=== PATIENT | male | born 1990 | race Caucasian/White ===

== ENCOUNTER 2023-01-06 12:40 | Inpatient (IN) | payer OTHER ==
[2023-01-06 14:58] VITALS: BMI 29.1
[2023-01-06] MEDS ORDERED: COLLOIDAL OATMEAL 1 BAR EACH TP PRN (17:30)
[2023-01-06] MEDS ORDERED: BENZOCAINE/MENTHOL (CHLORASEPTIC ) LOZENGE MM PRN (17:30)
[2023-01-06] MEDS ORDERED: BENZONATATE 200 MG CAPSULE PO PRN (17:30)
[2023-01-06] MEDS ORDERED: NALOXONE HCL 0.4 MG/ML VIAL IM PRN (17:30)
[2023-01-06] MEDS ORDERED: LOPERAMIDE HCL 2 MG CAPSULE PO PRN (17:30)
[2023-01-06] MEDS ORDERED: guaiFENesin 600 MG TABLET.ER (FP) PO PRN (17:30)
[2023-01-06] MEDS ORDERED: POLYETHYLENE GLYCOL (HEALTHYLAX) 3350 17 GM PACKET PO PRN (17:30)
[2023-01-06] MEDS ORDERED: MAGNESIUM HYDROX 2400MG/30ML ORAL SUSPENSION 30 ML CUP PO PRN (17:30)
[2023-01-06] MEDS ORDERED: NALOXONE HCL (KLOXXADO) 8 MG SPRAY NS PRN (17:30)
[2023-01-06] MEDS ORDERED: IBUPROFEN 400 MG TABLET (FP) PO PRN (17:30)
[2023-01-06] MEDS ORDERED: P-EPHED 60MG/TRIPROLIDI 2.5MG TABLET PO PRN (17:30)
[2023-01-06] MEDS ORDERED: MAG HYDROX/AL HYDROX/SIMETH 30 ML UNIT-DOSE CUP PO PRN (17:30)
[2023-01-06] MEDS ORDERED: AMMONIUM LACTATE 12% LOTION 225 GM BOTTLE TP PRN (17:30)
[2023-01-06] MEDS ORDERED: ACETAMINOPHEN 325 MG TABLET (FP) PO PRN (17:30)
[2023-01-06] MEDS ORDERED: IBUPROFEN 600 MG TABLET (FP) PO PRN (17:30)
[2023-01-06] MEDS ORDERED: TUBERCULIN PPD 5 TU/0.1ML SYRINGE (IN PATIENT USE ONLY) ID ONE (18:45)
[2023-01-06] MEDS: MELATONIN 5 MG TABLETS PO SCH (21:40)
[2023-01-06] MEDS: THIAMINE HCL 100 MG TABLET (FP) PO SCH (21:40)
[2023-01-07] MEDS: PRENATAL VITAMINS W/ FOLIC ACID TABLET (FP) PO SCH (10:33)
[2023-01-07 14:25] LABS: POTASSIUM 4.2 mmol/L (3.5-5.1)
[2023-01-07 14:26] LABS: HEMATOCRIT 29.6 % (35.4-49); HEMOGLOBIN 9.3 GM/dL (11.7-16.9); MCH 21.5 pg (25.7-33.7); MCHC 31.4 g/dl (32.0-35.9); MEAN CELL VOLUME 68.4 fl (80-96); MEAN PLT VOLUME 7.7 fl (7.5-11.1); PLATELET COUNT 371 10^3/uL (134-434); RBC 4.33 M/mm3 (4.00-5.60); RDW 17.7 % (11.9-15.9); WHITE BLOOD COUNT 3.2 K/mm3 (4.0-10.0)
[2023-01-07 14:31] LABS: CALCIUM 8.9 mg/dL (8.5-10.1)
[2023-01-07 14:32] LABS: BLOOD UREA NITROGEN 17.8 mg/dL (7-18)
[2023-01-07 14:49] LABS: ALBUMIN 2.9 g/dl (3.4-5.0)
[2023-01-07 14:51] LABS: SYPHILIS W/ RPR CONF NON-REACTIVE (NONREACTIVE)
[2023-01-07 14:52] LABS: CREATININE 0.9 mg/dL (0.55-1.3)
[2023-01-07 14:53] LABS: BILIRUBIN,TOTAL 0.4 mg/dL (0.2-1)
[2023-01-07] MEDS: MELATONIN 5 MG TABLETS PO SCH ×2 (21:51→22:15)
[2023-01-07] MEDS: THIAMINE HCL 100 MG TABLET (FP) PO SCH (21:51)
[2023-01-07] MEDS: hydrOXYzine PAMOATE 25 MG CAPSULE (FP) PO PRN (22:16)
[2023-01-08] MEDS: PRENATAL VITAMINS W/ FOLIC ACID TABLET (FP) PO SCH (09:56)
[2023-01-08] MEDS ORDERED: BUPRENORPHINE HCL 150 MCG, BUPRENORPHINE HCL 75 MCG BC PRN (10:43)
[2023-01-08] MEDS ORDERED: BUPRENORPHINE HCL 150 MCG, BUPRENORPHINE HCL 75 MCG BC ONE (10:43)
[2023-01-08] MEDS ORDERED: cloNIDine HCL 0.1 MG TABLET PO ONE (10:43)
[2023-01-08 11:15] LABS: URINE APPEARANCE CLEAR; URINE BILIRUBIN NEGATIVE (NEGATIVE); URINE COLOR YELLOW; URINE GLUCOSE (UA) NEGATIVE (NEGATIVE); URINE KETONE NEGATIVE (NEGATIVE); URINE LEUK ESTERASE NEGATIVE (NEGATIVE); URINE NITRITE NEGATIVE (NEGATIVE); URINE PROTEIN TRACE (NEGATIVE)
[2023-01-08] MEDS: hydrOXYzine PAMOATE 25 MG CAPSULE (FP) PO PRN (21:17)
[2023-01-08] MEDS: THIAMINE HCL 100 MG TABLET (FP) PO SCH (21:17)
[2023-01-08] MEDS: MELATONIN 5 MG TABLETS PO SCH (21:17)
[2023-01-09] MEDS ORDERED: BUPRENORPHINE HCL 150 MCG, BUPRENORPHINE HCL 75 MCG BC PRN
[2023-01-09] MEDS: BUPRENORPHINE HCL 150 MCG, BUPRENORPHINE HCL 75 MCG BC SCH ×2 (07:22→18:51)
[2023-01-09] MEDS: FERROUS SO4 325 MG TABLET (FP) PO SCH (10:18)
[2023-01-09] MEDS: PRENATAL VITAMINS W/ FOLIC ACID TABLET (FP) PO SCH (10:18)
[2023-01-09] MEDS: hydrOXYzine PAMOATE 25 MG CAPSULE (FP) PO PRN (10:19)
[2023-01-09] MEDS: cloNIDine HCL 0.1 MG TABLET PO PRN (11:30)
[2023-01-09] MEDS: THIAMINE HCL 100 MG TABLET (FP) PO SCH (23:14)
[2023-01-09] MEDS: MELATONIN 5 MG TABLETS PO SCH (23:14)
[2023-01-10] MEDS: BUPRENORPHINE HCL 450 MCG FILM BC SCH ×2 (06:05→18:38)
[2023-01-10] MEDS: hydrOXYzine PAMOATE 25 MG CAPSULE (FP) PO PRN (11:22)
[2023-01-10] MEDS: FERROUS SO4 325 MG TABLET (FP) PO SCH (11:22)
[2023-01-10] MEDS: PRENATAL VITAMINS W/ FOLIC ACID TABLET (FP) PO SCH (11:22)
[2023-01-10] MEDS: cloNIDine HCL 0.1 MG TABLET PO PRN (11:22)
[2023-01-10] MEDS: MELATONIN 5 MG TABLETS PO SCH (22:02)
[2023-01-10] MEDS: THIAMINE HCL 100 MG TABLET (FP) PO SCH (22:02)
[2023-01-11] MEDS: BUPRENORPHINE/NALOXONE 4 MG/1 MG FILM PACKET SL SCH ×2 (07:35→18:26)
[2023-01-11] MEDS: FERROUS SO4 325 MG TABLET (FP) PO SCH (09:00)
[2023-01-11] MEDS: cloNIDine HCL 0.1 MG TABLET PO PRN (09:00)
[2023-01-11] MEDS: PRENATAL VITAMINS W/ FOLIC ACID TABLET (FP) PO SCH (09:00)
[2023-01-11] MEDS: hydrOXYzine PAMOATE 25 MG CAPSULE (FP) PO PRN (09:00)
[2023-01-11] MEDS ORDERED: BUPRENORPHINE/NALOXONE 4 MG/1 MG FILM PACKET SL ONE (10:15)
[2023-01-11] MEDS: THIAMINE HCL 100 MG TABLET (FP) PO SCH (23:05)
[2023-01-11] MEDS: MELATONIN 5 MG TABLETS PO SCH (23:05)
[2023-01-12] MEDS ORDERED: BUPRENORPHINE/NALOXONE 8 MG/2 MG FILM PACKET SL ONE (06:00)
[2023-01-12] MEDS: PRENATAL VITAMINS W/ FOLIC ACID TABLET (FP) PO SCH (11:30)
[2023-01-12] MEDS: FERROUS SO4 325 MG TABLET (FP) PO SCH (11:30)
[2023-01-12] MEDS: MELATONIN 5 MG TABLETS PO SCH (21:42)
[2023-01-12] MEDS: THIAMINE HCL 100 MG TABLET (FP) PO SCH (21:42)
[2023-01-13] MEDS: FERROUS SO4 325 MG TABLET (FP) PO SCH (09:29)
[2023-01-13] MEDS: PRENATAL VITAMINS W/ FOLIC ACID TABLET (FP) PO SCH (09:29)
[2023-01-13] MEDS ORDERED: BUPRENORPHINE/NALOXONE 8 MG/2 MG FILM PACKET SL SCH (10:15)
[2023-01-13] MEDS: MELATONIN 5 MG TABLETS PO SCH (21:41)
[2023-01-13] MEDS: THIAMINE HCL 100 MG TABLET (FP) PO SCH (21:41)
[2023-01-14 07:03] VITALS: TEMP 97.7
[2023-01-14] MEDS: BUPRENORPHINE/NALOXONE 8 MG/2 MG FILM PACKET SL SCH ×2 (10:18→21:58)
[2023-01-14] MEDS: FERROUS SO4 325 MG TABLET (FP) PO SCH (10:18)
[2023-01-14] MEDS: PRENATAL VITAMINS W/ FOLIC ACID TABLET (FP) PO SCH (10:18)
[2023-01-14] MEDS: SUVOREXANT 10 MG TABLET PO PRN (21:57)
[2023-01-14] MEDS: THIAMINE HCL 100 MG TABLET (FP) PO SCH (21:57)
[2023-01-15] MEDS: PRENATAL VITAMINS W/ FOLIC ACID TABLET (FP) PO SCH (09:15)
[2023-01-15] MEDS: BUPRENORPHINE/NALOXONE 8 MG/2 MG FILM PACKET SL SCH ×2 (09:15→21:48)
[2023-01-15] MEDS: FERROUS SO4 325 MG TABLET (FP) PO SCH (09:15)
[2023-01-15] MEDS ORDERED: hydrOXYzine PAMOATE 50 MG CAPSULE (FP) PO PRN (14:59)
[2023-01-15] MEDS: THIAMINE HCL 100 MG TABLET (FP) PO SCH (21:47)
[2023-01-15] MEDS: SUVOREXANT 10 MG TABLET PO PRN (21:47)
[2023-01-16 09:10] VITALS: BP 103/62; PULSE 86; RESP 16
[2023-01-16] MEDS: BUPRENORPHINE/NALOXONE 8 MG/2 MG FILM PACKET SL SCH (10:01)
[2023-01-16] MEDS: PRENATAL VITAMINS W/ FOLIC ACID TABLET (FP) PO SCH (10:01)
[2023-01-16] MEDS: FERROUS SO4 325 MG TABLET (FP) PO SCH (10:02)
[2023-01-16] MEDS ORDERED: ONDANSETRON *ODT* 4 MG TABLET SL PRN (10:27)
== END 2023-01-16 15:29 | disposition left against medical advice (07) | DRG 772 ==
LOC: YASAS 12:40 → Y3W 17:37
PROVIDERS: ADMIT Allergy & Immunology; ATTEND Psychiatry & Neurology Pain Medicine
PROC: HZ42ZZZ Group Counseling for Substance Abuse Treatment, Cognitive-Behavioral (ICD-10-PCS; principal; 2023-01-06)
PROC: HZ42ZZZ Group Counseling for Substance Abuse Treatment, Cognitive-Behavioral (ICD-10-PCS; 2023-01-06)
DX: F11.20 Opioid dependence, uncomplicated (principal); F14.20 Cocaine dependence, uncomplicated; F19.282 Other psychoactive substance dependence with psychoactive substance-induced sleep disorder; E88.09 Other disorders of plasma-protein metabolism, not elsewhere classified; D64.9 Anemia, unspecified; G47.00 Insomnia, unspecified; L98.499 Non-pressure chronic ulcer of skin of other sites with unspecified severity; R11.2 Nausea with vomiting, unspecified; F91.8 Other conduct disorders; Z91.199 Patient's noncompliance with other medical treatment and regimen due to unspecified reason; S50.812A Abrasion of left forearm, initial encounter; W19.XXXA Unspecified fall, initial encounter; Y92.9 Unspecified place or not applicable
CPT/HCPCS: 36415; 80053; 81003; 85027; 86780; 86803; 87522; 87635; 93005; 93010